=== PATIENT | male | born 1975 | race African-American/Black ===

== ENCOUNTER 2019-06-04 16:05 | Emergency (ER) | payer OTHER ==
[2019-06-04] MEDS ORDERED: HYDROCODONE/APAP 10/325 TAB ONE (18:21)
--- NOTE | 2019-06-04 19:10 | RAD REPORT ---
EXAM DESCRIPTION: RAD - Humerus Right - 06/04/2019 7:00 pm CLINICAL HISTORY: PAIN COMPARISON: No comparisons FINDINGS: No acute fracture or dislocation seen.
--- NOTE | 2019-06-04 19:27 | EDPHYS ---
Physician Documentation [facility] Name: Jeramy Alcantara Age: 43 yrs Sex: Male : 1975 Arrival Date: 06/04/2019 Time: 16:06 Bed 27 Private MD: ED Physician Abdelrahman Harvey HPI: 06/04 18:14 This 43 yrs old Black Male presents to ER via Ambulatory with complaints of Right Arm pm1 Injury. 18:14 The patient or guardian complains of pain, that is acute. The complaints affect the pm1 right tricep. Context: The problem was sustained at home, resulted from a direct blow, Wrench. Onset: The symptoms/episode began/occurred today, at 15:00. Treatment prior to arrival includes: no previous treatment. Modifying factors: The symptoms are alleviated by nothing. the symptoms are aggravated by nothing. Associated signs and symptoms: Pertinent positives: pain, swelling, Pertinent negatives: numbness, tingling. Severity of symptoms: in the emergency department the symptoms are actually worse. The patient has not experienced similar symptoms in the past. The patient has not recently seen a physician. Patient was changing the belt of his car with his family. his family member let go a tool that was holding tension on the belt and it struck his right lower triceps area. Historical: - Allergies: 16:49 No Known Allergies; tw2 - Home Meds: 16:49 carvedilol oral oral [Active]; lisinopril Oral 3 times a day [Active]; Lasix Oral tw2 [Active]; - PMHx: 16:49 CHF; tw2 - PSHx: 16:49 None; tw2 - Immunization history:: Adult Immunizations. - Coronavirus screen:: The patient has NOT traveled to [place], [place], or [place] in the past 14 days. - Social history:: Smoking status: Smoking status: Patient reports the use of cigarette tobacco products, smokes one pack cigarettes per day. "a pack will last me 2 weeks". - Ebola Screening: : Patient denies travel to an Ebola-affected area in the 21 days before illness onset. ROS: 18:14 Constitutional: Negative for fever, chills, and weight loss, Neck: Negative for injury, pm1 pain, and swelling, Cardiovascular: Negative for chest pain, palpitations, and edema, Respiratory: Negative for shortness of breath, cough, wheezing, and pleuritic chest pain, Abdomen/GI: Negative for abdominal pain, nausea, vomiting, diarrhea, and constipation, Back: Negative for injury and pain. 18:14 Skin: Negative for injury, rash, and discoloration, Neuro: Negative for headache, weakness, numbness, tingling, and seizure. 18:14 MS/extremity: Positive for pain, swelling, of the right tricep. Exam: 18:14 Constitutional: This is a well developed, well nourished patient who is awake, alert, pm1 and in no acute distress. Head/Face: Normocephalic, atraumatic. Neck: Trachea midline, no thyromegaly or masses palpated, and no cervical lymphadenopathy. Supple, full range of motion without nuchal rigidity, or vertebral point tenderness. No Meningismus. Chest/axilla: Normal chest wall appearance and motion. Nontender with no deformity. No lesions are appreciated. Cardiovascular: Regular rate and rhythm with a normal S1 and S2. No gallops, murmurs, or rubs. Normal PMI, no JVD. No pulse deficits. Respiratory: Lungs have equal breath sounds bilaterally, clear to auscultation and percussion. No rales, rhonchi or wheezes noted. No increased work of breathing, no retractions or nasal flaring. Abdomen/GI: Soft, non-tender, with normal bowel sounds. No distension or tympany. No guarding or rebound. No evidence of tenderness throughout. Back: No spinal tenderness. No costovertebral tenderness. Full range of motion. Skin: Warm, dry with normal turgor. Normal color with no rashes, no lesions, and no evidence of cellulitis. 18:14 Musculoskeletal/extremity: Extremities: grossly normal except: noted in the distal aspect of right tricep: no tenderness present to right shoulder and right elbow, Pulses: noted to be 2+ in the right radial artery, the right hand Sensation intact. 18:14 Neuro: Orientation: is normal, Motor: is normal, moves all fours. Vital Signs: 16:47 BP 132 / 104; Pulse 107; Resp 17; Temp 98.5(TE); Pulse Ox 100% on R/A; Weight 79.38 kg tw2 (R); Height 5 ft. 8 in. (172.72 cm); Pain 9/10; 19:25 BP 120 / 90; Pulse 92; Resp 17; Temp 99.3; Pulse Ox 99% ; Pain 7/10; bb3 16:47 Body Mass Index 26.61 (79.38 kg, 172.72 cm) tw2 MDM: 18:09 Patient medically screened. pm1 18:18 Data reviewed: vital signs. Data interpreted: Pulse oximetry: on room air is 100 %. pm1 Interpretation: normal. 19:26 Counseling: I had a detailed discussion with the patient and/or guardian regarding: the pm1 historical points, exam findings, and any diagnostic results supporting the discharge/admit diagnosis, radiology results, the need for outpatient follow up, to return to the emergency department if symptoms worsen or persist or if there are any questions or concerns that arise at home. 06/04 18:14 Order name: Humerus Right XRAY; Complete Time: 19:26 pm1 06/04 19:26 Order name: Sling; Complete Time: 19:30 pm1 Administered Medications: 18:20 Drug: [place] 10 mg-325 mg 1 tabs Route: PO; sv 20:09 Follow up: Response: No adverse reaction; Marked relief of symptoms mg2 Disposition: 06/05 09:01 Co-signature as Attending Physician, Abdelrahman Harvey MD I agree with the assessment and philip plan of care. Disposition: 06/04/19 19:27 Discharged to Home. Impression: Contusion of right upper arm. - Condition is Stable. - Discharge Instructions: Contusion. - Prescriptions for Tylenol- Codeine #3 300-30 mg Oral Tablet - take 2 tablets by ORAL route every 6 hours As needed; 20 tablet. - Work release form, Medication Reconciliation Form, Thank You Letter, Antibiotic Education, Prescription Opioid Use form. - Follow up: Emergency Department; When: As needed; Reason: Worsening of condition. Follow up: Private Physician; When: 2 - 3 days; Reason: Recheck today's complaints, Continuance of care, Re-evaluation by your physician. - Problem is new. - Symptoms have improved. Signatures: Dispatcher [employer] Mirna Montes RN RN sv Anderson, Corey, MD MD cha Marinas, Patrick, MANAGER CHEMICAL MANAGER CHEMICAL pm1 Estefani Arias RN RN tw2 Bao Maldonado RN RN mg2 Corrections: (The following items were deleted from the chart) 06/04 20:14 19:27 06/04/2019 19:27 Discharged to Home. Impression: Contusion of right upper arm. mg2 Condition is Stable. Forms are Medication Reconciliation Form, Thank You Letter, Antibiotic Education, Prescription Opioid Use. Follow up: Emergency Department; When: As needed; Reason: Worsening of condition. Follow up: Private Physician; When: 2 - 3 days; Reason: Recheck today's complaints, Continuance of care, Re-evaluation by your physician. Problem is new. Symptoms have improved. pm1
--- NOTE | 2019-06-04 19:27 | ER ---
Nurse's Notes [facility] Name: Jeramy Alcantara Age: 43 yrs Sex: Male : 1975 Arrival Date: 06/04/2019 Time: 16:06 Bed 27 Private MD: Diagnosis: Contusion of right upper arm Presentation: 06/04 16:43 Presenting complaint: Patient states: me and one of my buddies was working on his car tw2 and i have a tool that pulls the belt tension back, and he let go of the bar and it hit the back of my right arm and it swollen. Transition of care: patient was not received from another setting of care. Onset of symptoms was June 04, 2019. Risk Assessment: Do you want to hurt yourself or someone else? Patient reports no desire to harm self or others. Initial Sepsis Screen: Does the patient meet any 2 criteria? No. Patient's initial sepsis screen is negative. Does the patient have a suspected source of infection? No. Patient's initial sepsis screen is negative. Care prior to arrival: None. 16:43 Method Of Arrival: Ambulatory tw2 16:43 Acuity: BOLIVAR 4 tw2 Triage Assessment: 16:45 General: Appears in no apparent distress. Behavior is calm, cooperative, appropriate tw2 for age. Pain: Complains of pain in right tricep. Musculoskeletal: Swelling present in right tricep "i can only extend it so far". Injury Description: he was hit in the back of the arm with a tension belt. Historical: - Allergies: 16:49 No Known Allergies; tw2 - Home Meds: 16:49 carvedilol oral oral [Active]; lisinopril Oral 3 times a day [Active]; Lasix Oral tw2 [Active]; - PMHx: 16:49 CHF; tw2 - PSHx: 16:49 None; tw2 - Immunization history:: Adult Immunizations. - Coronavirus screen:: The patient has NOT traveled to [place], [place], or [place] in the past 14 days. - Social history:: Smoking status: Smoking status: Patient reports the use of cigarette tobacco products, smokes one pack cigarettes per day. "a pack will last me 2 weeks". - Ebola Screening: : Patient denies travel to an Ebola-affected area in the 21 days before illness onset. Screenin:09 Abuse screen: Denies threats or abuse. Denies injuries from another. Nutritional sv screening: No deficits noted. Tuberculosis screening: No symptoms or risk factors identified. Fall Risk None identified. Assessment: 18:09 General: Appears in no apparent distress. uncomfortable, well groomed, well developed, sv Behavior is cooperative, appropriate for age. Pain: Complains of pain in right arm Pain currently is 9 out of 10 on a pain scale. Is continuous, Aggravated by increased activity, Noted to be grimacing, guarding, resistant to movement. Neuro: Level of Consciousness is awake, alert, obeys commands, Oriented to person, place, time, situation, Gait is steady, Speech is normal. Cardiovascular: Patient's skin is warm and dry. Pulses are 3+ in right radial artery and left radial artery. Respiratory: Airway is patent Respiratory effort is even, unlabored, Respiratory pattern is regular, symmetrical. Derm: Skin is pink, warm \\T\\ dry. Musculoskeletal: Range of motion: limited in right elbow Swelling present in right arm. 18:20 Reassessment: Patient appears in no apparent distress at this time. No changes from sv previously documented assessment. Patient and/or family updated on plan of care and expected duration. Pain level reassessed. Patient is alert, oriented x 3, equal unlabored respirations, skin warm/dry/pink. Vital Signs: 16:47 BP 132 / 104; Pulse 107; Resp 17; Temp 98.5(TE); Pulse Ox 100% on R/A; Weight 79.38 kg tw2 (R); Height 5 ft. 8 in. (172.72 cm); Pain 9/10; 19:25 BP 120 / 90; Pulse 92; Resp 17; Temp 99.3; Pulse Ox 99% ; Pain 7/10; bb3 16:47 Body Mass Index 26.61 (79.38 kg, 172.72 cm) tw2 ED Course: 16:06 Patient arrived in ED. rg4 16:45 Triage completed. tw2 16:45 Arm band placed on. tw2 18:08 Phuc Vegas NP is PHCP. pm1 18:09 Abdelrahman Harvey MD is Attending Physician. pm1 18:09 Nurse Practitioner and/or Physician Critical Care Cns to see patient. sv 18:09 Patient has correct armband on for positive identification. Placed in gown. Bed in low sv position. Call light in reach. Side rails up X 1. Door closed. Warm blanket given. Head of bed elevated. 18:09 Elevated right arm. sv 18:16 Mirna Barbour, RN is Primary Nurse. sv 18:20 Awaiting for x-ray. sv 18:31 X-ray(s) taken. sv 18:43 Awaiting radiology results. sv 19:00 Humerus Right XRAY In Process Unspecified. EDMS 19:00 Report given to Hayde SALINAS. sv 19:03 Primary Nurse role handed off by Mirna Barbour, RN sv 20:08 No provider procedures requiring assistance completed. Patient did not have IV access mg2 during this emergency room visit. Sling applied to right arm. Administered Medications: 18:20 Drug: [place] 10 mg-325 mg 1 tabs Route: PO; sv 20:09 Follow up: Response: No adverse reaction; Marked relief of symptoms mg2 Outcome: 19:27 Discharge ordered by MD. pm1 20:14 Patient left the ED. mg2 Signatures: Dispatcher [employer] EDSD Mirna Barbour, RN RN sv Phuc Vegas, [employer] AREA DIRECTOR pm1 Estefani Arias RN RN tw2 Pat Moya rg4 Bao Maldonado RN RN mg2 Hayde Garcia bb3
[2019-06-04 20:23] VITALS: BP 120/90; TEMP 99.3; O2SAT 99
== END 2019-06-04 20:14 | disposition home or self-care (01) ==
LOC: ER 16:05
DX: S40.021A Contusion of right upper arm, initial encounter (principal); W22.8XXA Striking against or struck by other objects, initial encounter; Y93.89 Activity, other specified; Y92.009 Unspecified place in unspecified non-institutional (private) residence as the place of occurrence of the external cause; I50.9 Heart failure, unspecified
CPT/HCPCS: 99284